=== PATIENT | female | born 1995 | race Caucasian/White ===

== ENCOUNTER 2021-04-05 21:33 | Inpatient (IN) ==
[2021-04-05] MEDS ORDERED: Penicillin G Potassium IV 5,000,000 UNITS in NS 0.9% 100 ml BAG 100 ML IVPB ONE (22:07)
[2021-04-05] MEDS ORDERED: Lactated Ringers 1000 ml BAG 1,000 ML IV ONE ×2 (22:07→23:22)
[2021-04-05 22:39] LABS: ABS Eosinophils 0.1 10^3/ul (0-0.6); ABS Lymphocytes 2.3 10^3/ul (1.0-4.8); ABS Monocytes 0.7 10^3/ul (0-0.8); ABS Neutrophils 6.4 10^3/ul (1.5-7.7); Eosinophil % 0.6 %; Hematocrit 34 % (35-47); Hemoglobin 11.5 g/dL (12.0-16.0); Mean Corpuscular HGB Conc 34 g/dL (31-36); Mean Corpuscular Hemoglobin 30 pg (27-31); Mean Corpuscular Volume 88 fL (80-97); Mean Platelet Volume 10.4 fL (7.4-10.4); Nucleated Red Blood Cells % 0.1; Platelet Count 215 10^3/uL (150-450); Red Blood Count 3.88 10^6 /uL (3.70-4.87); Red Cell Distribution Width 14 % (10-15); White Blood Count 9.5 10^3/uL (3.5-10.8)
[2021-04-05] MEDS ORDERED: OBEPIDURAL 250 ML EPIDURAL ONE (22:45)
[2021-04-05 22:56] LABS: Urine Benzodiazepine Screen None Detected (None Detect); Urine Cannabinoids Screen None Detected (None Detect); Urine Opiates Screen None Detected (None Detect)
[2021-04-05] MEDS ORDERED: Sodium Citrate/Citric Acid LIQ 15 ML UDC PO PRN (23:22)
[2021-04-05] MEDS ORDERED: Phenylephrine 40 mcg/mL 10mL (400mcg) SYRINGE IV PUSH PRN ×2 (23:22)
[2021-04-05] MEDS ORDERED: Lactated Ringers 1000 ml BAG 1,000 ML IV SCH (23:45)
[2021-04-05] MEDS ORDERED: OBEPIDURAL 250 ML EPIDURAL SCH (23:45)
[2021-04-06 00:40] LABS: Urine Appearance Clear; Urine Bilirubin Negative (Negative); Urine Blood Negative (Negative); Urine Color Straw; Urine Glucose Negative (Negative); Urine Ketones Negative (Negative); Urine Nitrite Negative (Negative); Urine Protein Negative (Negative); Urine Specific Gravity 1.014 (1.002-1.030); Urine Urobilinogen Negative (Negative)
[2021-04-06] MEDS ORDERED: Oxytocin in LR 20 UNITS/1,000 ML BAG IVPB ONE (01:48)
[2021-04-06] MEDS ORDERED: Penicillin G Potassium IV 3,000,000 UNITS in NS 0.9% 100 ml BAG 100 ML IVPB SCH (02:30)
[2021-04-06] MEDS ORDERED: Methylergonovine 0.2 mg AMPULE 1 ml AMP IM ONE (02:32)
[2021-04-06] MEDS ORDERED: Witch Hazel PAD JAR TOPICAL PRN (02:32)
[2021-04-06] MEDS ORDERED: Dibucaine 1% OINT 28.35 GM TUBE PR PRN (02:32)
[2021-04-06] MEDS ORDERED: Oxytocin in LR 20 UNITS/1,000 ML BAG IVPB SCH (03:00)
[2021-04-06] MEDS ORDERED: Lactated Ringers 1000 ml BAG 1,000 ML IV SCH (03:00)
[2021-04-06] MEDS ORDERED: Methylergonovine 0.2 mg AMPULE 1 ml AMP ONE (07:09)
[2021-04-07 06:37] LABS: ABS Basophils 0.1 10^3/ul (0-0.2); ABS Eosinophils 0.2 10^3/ul (0-0.6); ABS Lymphocytes 2.9 10^3/ul (1.0-4.8); ABS Monocytes 0.8 10^3/ul (0-0.8); ABS Neutrophils 6.2 10^3/ul (1.5-7.7); Eosinophil % 1.5 %; Hematocrit 30 % (35-47); Mean Corpuscular HGB Conc 33 g/dL (31-36); Mean Corpuscular Hemoglobin 30 pg (27-31); Mean Corpuscular Volume 90 fL (80-97); Mean Platelet Volume 10.4 fL (7.4-10.4); Platelet Count 185 10^3/uL (150-450); Red Blood Count 3.35 10^6 /uL (3.70-4.87); Red Cell Distribution Width 14 % (10-15); White Blood Count 10.1 10^3/uL (3.5-10.8)
[2021-04-07 20:15] VITALS: BP 124/67
== END 2021-04-08 11:38 | disposition home or self-care (01) | DRG 560 ==
LOC: MCHOBOUT 21:33 → MCHOB 22:04
PROVIDERS: ADMIT Midwife; ATTEND Midwife

== ENCOUNTER 2023-09-11 01:55 | Inpatient (IN) ==
[2023-09-11] MEDS ORDERED: Lidocaine 1% VIAL 10 MG/ML 30 ML VIAL INJ PRN (02:11)
[2023-09-11] MEDS: Lactated Ringers 1000 ml BAG 1,000 ML IV ONE ×2 (02:20→03:11)
[2023-09-11 02:37] LABS: ABS Eosinophils 0.1 10^3/uL (0.0-0.5); ABS Lymphocytes 2.5 10^3/uL (1.0-4.8); ABS Monocytes 0.9 10^3/uL (0.0-0.9); ABS Neutrophils 5.5 10^3/uL (1.5-7.6); ABS Nucleated RBC 0.01 10^3/ul; Eosinophil % 0.7 %; Hematocrit 32.7 % (35-45); Hemoglobin 10.9 g/dL (11.5-14.3); Lymphocyte % 28.1 %; Mean Corpuscular Hemoglobin 28.4 pg (27-33); Mean Corpuscular Hgb Conc 33.3 g/dL (31-36); Mean Corpuscular Volume 85.3 fL (80-97); Mean Platelet Volume 9.2 fL (7.5-11.2); Nucleated Red Blood Cells % 0.1 %/100WBC (0.0-0.8); Platelet Count 263 10^3/uL (150-450); Red Blood Count 3.84 10^6/uL (3.63-4.92); White Blood Count 9.1 10^3/uL (3.8-11.8)
[2023-09-11] MEDS ORDERED: OBEPIDURAL (200 ML) 0 ML EPIDURAL ONE (02:41)
[2023-09-11] MEDS ORDERED: Lidocaine 1.5% EPI 1:200,000 30 ML SDV ONE (02:41)
[2023-09-11] MEDS ORDERED: fentaNYL 100 mcg/2 ml 50 MCG/ML VIAL ONE (02:47)
[2023-09-11] MEDS ORDERED: OBEPIDURAL (200 ML) 200 ML EPIDURAL ONE (02:47)
[2023-09-11] MEDS ORDERED: Bupivacaine 0.25% SDV PF 10 ML VIAL INJ ONE (02:48)
[2023-09-11] MEDS ORDERED: Lactated Ringers 1000 ml BAG 1,000 ML IV ONE (04:05)
[2023-09-11] MEDS ORDERED: Sodium Citrate/Citric Acid LIQ 15 ML UDC PO PRN (04:05)
[2023-09-11 04:18] LABS: Urine Appearance Clear; Urine Bilirubin Negative (Negative); Urine Blood Negative (Negative); Urine Color Straw; Urine Glucose Negative (Negative); Urine Ketones Negative (Negative); Urine Nitrite Negative (Negative); Urine Protein Negative (Negative); Urine Specific Gravity 1.005 (1.002-1.030); Urine Urobilinogen Negative (Negative)
[2023-09-11 04:28] LABS: Urine Benzodiazepine Screen None Detected (None Detect); Urine Cannabinoids Screen None Detected (None Detect); Urine Opiates Screen None Detected (None Detect)
[2023-09-11] MEDS ORDERED: Oxytocin in LR 20,000 MILLI.UNIT/1,000 ML BAG IV ONE (05:16)
[2023-09-11] MEDS ORDERED: Methylergonovine 0.2 mg AMPULE 1 ml AMP ONE (05:19)
[2023-09-11] MEDS ORDERED: Methylergonovine 0.2 mg AMPULE 1 ml AMP IM ONE (05:28)
[2023-09-11] MEDS ORDERED: Oxytocin in LR 20,000 MILLI.UNIT/1,000 ML BAG IV SCH (05:30)
[2023-09-11] MEDS ORDERED: Lactated Ringers 1000 ml BAG 1,000 ML IV SCH (06:00)
[2023-09-11] MEDS: Dibucaine 1% OINT 28.35 GM TUBE PR PRN (06:18)
[2023-09-11] MEDS: Witch Hazel PAD JAR TOPICAL PRN (06:18)
[2023-09-11] MEDS ORDERED: Influenza vaccine *QUAD* *2023-24* 0.5 ML SYRINGE IM ONE (09:16)
[2023-09-11] MEDS ORDERED: Lidocaine 1% VIAL 10 MG/ML 30 ML VIAL ONE (09:29)
[2023-09-12 07:09] LABS: ABS Basophils 0.1 10^3/uL (0.0-0.1); ABS Eosinophils 0.2 10^3/uL (0.0-0.5); ABS Lymphocytes 3.1 10^3/uL (1.0-4.8); ABS Monocytes 0.7 10^3/uL (0.0-0.9); ABS Neutrophils 5.9 10^3/uL (1.5-7.6); Eosinophil % 2.1 %; Hemoglobin 9.9 g/dL (11.5-14.3); Lymphocyte % 31.3 %; Mean Corpuscular Hemoglobin 28.7 pg (27-33); Mean Corpuscular Hgb Conc 33.2 g/dL (31-36); Mean Corpuscular Volume 86.5 fL (80-97); Platelet Count 235 10^3/uL (150-450); Red Blood Count 3.47 10^6/uL (3.63-4.92); Red Cell Distribution Width 14.2 % (12-17)
[2023-09-12] MEDS: Dibucaine 1% OINT 28.35 GM TUBE PR PRN (08:22)
[2023-09-12] MEDS: Witch Hazel PAD JAR TOPICAL PRN (08:22)
[2023-09-12 08:25] VITALS: BP 119/56
[2023-09-12] MEDS ORDERED: Influenza vaccine *QUAD* *2023-24* 0.5 ML SYRINGE IM ONE (09:00)
== END 2023-09-12 12:30 | disposition home or self-care (01) | DRG 560 ==
LOC: MCHOBOUT 01:55 → MCHOB 02:10
PROVIDERS: ADMIT Midwife; ATTEND Midwife